=== PATIENT | female | born 1955 | race Hispanic/Latino ===

== ENCOUNTER → 2017-10-26 | Outpatient (CLI) | payer MEDICAID ==
[~2017-10-26] MED LIST: ATOR20TA65 PO; CILO100T PO; CLOP75TA32 PO; DULO20 PO; LEVO300T4 PO; PREG75 PO; TRAM-355 PO; TRAZ-185 PO
== END | disposition home or self-care (01) ==
LOC: RAH 12:34
PROVIDERS: ATTEND Internal Medicine Cardiovascular Disease
DX: I73.9 Peripheral vascular disease, unspecified (principal)
CPT/HCPCS: 93925

== ENCOUNTER → 2017-12-09 | Outpatient (CLI) | payer MEDICAID ==
[~2017-12-09] VITALS: Ht 154.9 cm; Wt 77.1 kg
[~2017-12-09] MED LIST changes: +REGADENOSON 0.4 MG/5 ML PF SYG IVP SCH
== END | disposition home or self-care (01) ==
LOC: SHCH 08:39
PROVIDERS: ATTEND Internal Medicine Cardiovascular Disease
DX: R07.9 Chest pain, unspecified (principal); R51 Headache
CPT/HCPCS: 78452; 93017; 96374; A9500 ×2; J2785

== ENCOUNTER → 2018-06-07 | Outpatient (CLI) | payer MEDICAID ==
[~2018-06-07] MED LIST changes: -REGADENOSON 0.4 MG/5 ML PF SYG IVP SCH
== END | disposition home or self-care (01) ==
LOC: RAH 15:31
PROVIDERS: ATTEND Internal Medicine
DX: M79.671 Pain in right foot (principal)
CPT/HCPCS: 73630

== ENCOUNTER → 2018-07-13 | Outpatient (CLI) | payer MEDICAID | END | disposition home or self-care (01) | LOC: SHCH 10:10 | PROVIDERS: ATTEND Internal Medicine Cardiovascular Disease | DX: I65.23 Occlusion and stenosis of bilateral carotid arteries (principal) | CPT/HCPCS: 93880 ==

== ENCOUNTER → 2019-08-10 | Outpatient (CLI) | payer MEDICAID ==
[~2019-08-10] VITALS: Ht 154.9 cm; Wt 70.3 kg
[~2019-08-10] MED LIST changes: +REGADENOSON 0.4 MG/5 ML PF SYG IVP SCH
== END | disposition home or self-care (01) ==
LOC: SHCH 08:29
PROVIDERS: ATTEND Internal Medicine Cardiovascular Disease
DX: I25.10 Atherosclerotic heart disease of native coronary artery without angina pectoris (principal)
CPT/HCPCS: 78452; 93017; 96374; A9500 ×2; J2785

== ENCOUNTER → 2021-08-04 | Outpatient (CLI) | payer MEDICAID | END | disposition home or self-care (01) | LOC: SHCH 08:14 | PROVIDERS: ATTEND Internal Medicine Cardiovascular Disease | DX: R07.9 Chest pain, unspecified (principal) | CPT/HCPCS: 78452; 93017; 96374; A9500 ×2; J2785 ==

== ENCOUNTER 2022-11-02 19:25 | Emergency (ER) | payer MEDICAID ==
[~2022-11-02] VITALS: Ht 154.9 cm; Wt 71.7 kg
[~2022-11-02 19:25] MED LIST changes: -CILO100T PO; +CILO100T3 PO; -REGADENOSON 0.4 MG/5 ML PF SYG IVP SCH
[2022-11-02 19:56] LABS: BASOPHILS % (AUTO) 0.5 % (0.0-5.0); EOSINOPHILS % (AUTO) 0.5 % (0.0-8.0); HEMATOCRIT 38.5 % (36-48); LYMPHOCYTES % (AUTO) 51.1 % (21.0-51.0); MEAN CORPUSCULAR HEMOGLOBIN 30.5 pg (27.0-33.0); MEAN CORPUSCULAR HGB CONC 33.2 g/dL (32.0-36.0); MEAN CORPUSCULAR VOLUME 91.7 fL (79-99); MONOCYTES % (AUTO) 8.5 % (3.0-13.0); NEUTROPHILS % (AUTO) 39.1 % (40.0-77.0); PLATELET COUNT (AUTO) 238 K/uL (130-400); RED CELL DISTRIBUTION WIDTH 13.2 % (11.0-15.5); WHITE BLOOD COUNT (AUTO) 6.4 K/uL (4.8-10.8)
[2022-11-02] MEDS ORDERED: LORAZEPAM 2 MG/ML 1 ML VIAL IVP ONE (20:00)
[2022-11-02 20:03] VITALS: BP 156/81
[2022-11-02 20:09] LABS: CREATININE 0.7 mg/dL (0.5-1.5); POTASSIUM 3.7 mmol/L (3.5-5.1)
[2022-11-02 20:14] LABS: ALBUMIN 3.6 g/dL (3.5-5.0); TOTAL PROTEIN, SERUM 6.8 g/dL (6.0-8.3)
[2022-11-02 20:26] LABS: B-TYPE NATRIURETIC PEPTIDE 11 pg/mL (0-100)
[2022-11-02] MEDS ORDERED: SOLU-MEDROL 125MG VIAL IVP ONE (21:00)
[2022-11-02] MEDS ORDERED: METH4TAB3 PO (22:19)
== END 2022-11-02 22:30 | disposition home or self-care (01) ==
LOC: EDH 19:25
DX: S46.912A Strain of unspecified muscle, fascia and tendon at shoulder and upper arm level, left arm, initial encounter (principal); M94.0 Chondrocostal junction syndrome [Tietze]; F41.9 Anxiety disorder, unspecified; E11.9 Type 2 diabetes mellitus without complications; M79.7 Fibromyalgia; J45.909 Unspecified asthma, uncomplicated; Z79.899 Other long term (current) drug therapy; Z88.6 Allergy status to analgesic agent; X58.XXXA Exposure to other specified factors, initial encounter; Y93.89 Activity, other specified; Y92.89 Other specified places as the place of occurrence of the external cause; Y99.8 Other external cause status
CPT/HCPCS: 99285; 96374; 71045; 96375; 84484 ×2; 80053; 83880; 85025; 36415; 93005; J2930; J2060

== ENCOUNTER 2025-01-31 06:36 | Day surgery (SDC) | payer MEDICARE, MEDICAID ==
[2025-01-29 12:28] LABS: IMMATURE GRANULOCYTE ABSOLUTE 0.02 K/uL (0-1); NUCLEATED RED BLOOD CELLS 0.0 % (0.0-0.19); PLATELET COUNT (AUTO) 260 K/uL (130-400); RED BLOOD CELL COUNT(AUTO) 4.66 MIL/uL (4.00-5.50); RED CELL DISTRIBUTION WIDTH 13.2 % (11.0-15.5); WHITE BLOOD COUNT (AUTO) 7.6 K/uL (4.8-10.8)
[2025-01-29 12:29] VITALS: BP 150/61; PULSE 66; RESP 17; TEMP 97.7
[2025-01-29 12:33] LABS: APPEARANCE,URINE CLOUDY (CLEAR); GLUCOSE, URINE (UA) 150 mg/dL (NEGATIVE); LEUKOCYTE ESTERASE ,URINE 75 Leu/uL (NEGATIVE); NITRATE,URINE NEGATIVE (NEGATIVE); OCCULT BLOOD,URINE NEGATIVE (NEGATIVE)
[2025-01-29 12:35] LABS: CREATININE 0.7 mg/dL (0.5-1.0); GLOMERULAR FILTR. RATE CALC 94.0 mL/min (>90); GLUCOSE,RANDOM 172.0 mg/dL (70-105); SODIUM SERUM 138.0 mmol/L (136-145); UREA NITROGEN, BLOOD 19.0 mg/dL (7-18)
[2025-01-29 12:37] LABS: INR 0.97 (0.85-1.15)
[2025-01-29 12:39] LABS: ADD UA MICROSCOPIC YES
[2025-01-29 12:42] LABS: SQUAMOUS EPITHELIAL CELL,UR MOD /HPF (0-2)
--- NOTE | 2025-01-29 13:42 | EKG ---
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
--- NOTE | 2025-01-29 20:01 | HMCIMG ---
EXAM: CR Chest, 1 View. CLINICAL HISTORY: PRE OP COMPARISON: None provided. FINDINGS: LUNGS: There is no mass, infiltrate, or acute pulmonary abnormality. PLEURAL SPACES: No pleural effusion or pneumothorax. MEDIASTINUM: Cardiac size and mediastinal contours within normal limits. BONES: No aggressive appearing osseous lesion seen. IMPRESSION: No acute cardiopulmonary pathology is evident. /Sarah Ann
[2025-01-31] VITALS (14 sets, daily range): BP systolic 125–183; BP diastolic 45–82; PULSE 56–72; RESP 15–21; TEMP 97.4–97.8
[~2025-01-31] VITALS: Ht 154.9 cm; Wt 69.0 kg
[~2025-01-31 06:36] MED LIST changes: +ALBU18HF7 PO; -ATOR20TA65 PO; +CETI10TA57 PO; -CILO100T3 PO; +CYCL5TAB3 PO; +CYMBALTA PO; -DULO20 PO; +EMPA25TA PO; +ERGO500093 PO; +ISOS30TA92 PO; +LEVO175T4 PO; -LEVO300T4 PO; +LOSA25TA41 PO; +METO-408 PO; +MONT-39 PO; -PREG75 PO; +ROSU40TA88 PO; -TRAM-355 PO; -TRAZ-185 PO
[2025-01-31] MEDS: 0.9%NACL 1000ML 1,000 ML IV SCH (07:23)
[2025-01-31] MEDS ORDERED: IOHEXOL 350 MG/ML 100ML INFUS..BTL IV ONE (07:45)
[2025-01-31] MEDS ORDERED: HEParin-NS 1,000 UNIT/500 ML 1,000 ML IV ONE (07:45)
[2025-01-31] MEDS ORDERED: LIDOCAINE HCL 400MG/20ML VIAL ONE (07:45)
[2025-01-31] MEDS ORDERED: MIDAZOLAM HCL 1 MG/ML 2ML VIAL ONE (08:01)
[2025-01-31] MEDS ORDERED: HEParin-NS 1,000 UNIT/500 ML 500 ML IV ONE (08:56)
[2025-01-31] MEDS ORDERED: NITROGLYCERIN 50MG/D5W 250ML 1 BOT IV PRN (09:30)
[2025-01-31] MEDS ORDERED: CILO100T3 PO (09:36)
--- NOTE | 2025-01-31 09:43 | PRN ---
Cath Procedure Report CATH PROCEDURE REPORT CARDIAC CATHETERIZATION REPORT Date of Service: Jan 31, 2025 After informed consent the patient was prepped and draped in the usual fashion. She received 2 mg of Versed in divided doses to achieve adequate level of conscious sedation. She received 16 cc of 2% xylocaine in the right inguinal area. A six [place] sheath was introduced into the right femoral artery using modified Seldinger technique. A Liz four right six [place]ic diagnostic catheter was then advanced over guidewire to the aortic root. Wire was removed and catheter engaged the algaaciq right coronary artery which was visualized in multiple planes. The catheter was removed and a Liz four left six [place]ic diagnostic catheter was then advanced over guidewire to the aortic root. Wire was removed and catheter engaged into the left main coronary artery. The left coronary system was visualized multiple planes and catheter was removed. Findings: The right coronary artery is a right-dominant vessel free of obstruction gives rise to normal PDA and posterolateral branches. The left main coronary artery is free of obstruction the circumflex artery is a nondominant vessel free of obstruction gives rise to normal obtuse marginal branches. The LAD has a mid stent just after the takeoff of the 1st diagonal artery. There was an 80% InStent restenosis. The 1st diagonal artery is a ozapn-ze-yvnircrm vessel with a 70% ostial stenosis. The remainder of the LAD is free of obstruction. After discussion with the patient was recommended to proceed with ballooning of the mid LAD stent and drug coated balloon as well as PTCA of the ostial diagonal artery. The patient received 6000 units of heparin and ACT was monitored and additional doses of heparin administered through the procedure to obtain adequate levels of ACT. A JL 3.5 guiding catheter was advanced over guidewire to the aortic root. Wire was removed and catheter engaged in the left main coronary artery. A choice PT extra-support wire was placed across the area stenosis in the LAD into the distal LAD. Initial attempts at balloon angioplasty with a 3.0 x 8 mm noncompliant balloon were unsuccessful due to watermelon. The balloon was parked in the distal LAD and a 2nd choice PT wire was placed into the diagonal artery. The ostium of the diagonal artery was then PTCA with a 2.0 x 6 mm balloon. The balloon was then pulled back into the LAD and inflated and the noncompliant balloon was again dilated in the stent but again continued to watermelon despite backup from the diagonal balloon. The diagonal balloon was removed and the 3.0 x 8 mm noncompliant balloon was replaced with a 3.0 x 10 mm balloon but again despite slow inflations the balloon continued to watermelon. The balloon was removed and replaced with a 3.0 x 18 mm semi compliant balloon which was then used to successfully dilate the InStent restenosis. This was reduced to approximately 0%. The balloon was removed and a 3.0 by 10 mm noncompliant balloon was then advanced to the area of the stent and dilated to 16 atmospheres. The balloon was removed and Angio on g showed normal KOLTON flow in the LAD with 0% stenosis in the mid LAD stent. There was a 20% residual stenosis in the ostium of the LAD. A 3.5 by 15 mm drug coated balloon was then advanced across the mid LAD stent and inflated to six atmospheres. Balloon was deflated and removed. Final angiogram shows 0% stenosis and normal KOLTON flow in the LAD with no dissection and 20% stenosis in the ostial diagonal artery post balloon angioplasty. Wires and balloons were removed. ACT measured post procedure sheathogram performed. And Perclose device applied. The entire procedure was well tolerated. The patient does take clopidogrel at home and took her dose this morning. Of 75 mg daily. She has an aspirin allergy and will receive 100 mg of cilostazol b.i.d. 1st dose this morning. Summary: Successful balloon angioplasty noncompliant balloon and drug coated balloon to the mid LAD InStent restenosis and successful balloon angioplasty of the ostial diagonal artery. Report dictated by PALMA Sanchez MD, MD Jan 31, 2025 09:43
--- NOTE | 2025-01-31 10:15 | NUR ---
PER DR. MICHAELS NO PLAVIX TO BE GIVEN PT DID TAKE HER DOSE THIS MORNING. PRIMARY RN MADE AWARE.
--- NOTE | 2025-01-31 12:15 | NUR ---
DRESSING: GAUZE TO RT FEMORAL SITE BLOODY DRAINAGE, REMOVED AND APPLIED D-STAT TO SITE. HELD PRESSURE FOR 20 MINUTES. NO DRAINAGE NOTED AFTER GAUZE CHANGED. RT GROIN SOFT TO TOUCH. NO REDNESS OR SWELLING NOTED TO SURROUNDING AREA.
--- NOTE | 2025-01-31 14:36 | NUR ---
REPORT: HAND OFF COMMUNICATION GIVEN TO ZULEMA QUARLES RN.
--- NOTE | 2025-01-31 16:00 | NUR ---
RIGHT FEMORAL SITE ASSESSED. D-STAT DRESSING REMAINS IN PLACE (CLOSED, DRY AND INTACT). NO BLEEDING/OOZING/HEMATOMA NOTED, SURROUNDING AREA SOFT, NON-TENDER. ASSISTED PATIENT TO SIT ON EDGE OF BED. DISCHARGE INSTRUCTIONS PROVIDED TO PATIENT AND DAUGHTER AT BEDSIDE. BOTH VERBALIZED UNDERSTANDING. NO QUESTIONS/CONCERNS VERBALIZED AT THIS TIME
== END 2025-01-31 16:15 | disposition home or self-care (01) ==
LOC: DAH 06:36
PROVIDERS: ATTEND Internal Medicine Cardiovascular Disease
DX: R94.39 Abnormal result of other cardiovascular function study (principal); I25.118 Atherosclerotic heart disease of native coronary artery with other forms of angina pectoris; T82.855A Stenosis of coronary artery stent, initial encounter; I47.19 Other supraventricular tachycardia; I10 Essential (primary) hypertension; J45.909 Unspecified asthma, uncomplicated; M79.7 Fibromyalgia; E78.5 Hyperlipidemia, unspecified; E03.9 Hypothyroidism, unspecified; E11.9 Type 2 diabetes mellitus without complications; F41.9 Anxiety disorder, unspecified; Y71.2 Prosthetic and other implants, materials and accessory cardiovascular devices associated with adverse incidents; Z79.01 Long term (current) use of anticoagulants; Z88.6 Allergy status to analgesic agent; Z88.8 Allergy status to other drugs, medicaments and biological substances; Z85.850 Personal history of malignant neoplasm of thyroid; Z90.49 Acquired absence of other specified parts of digestive tract; Z98.890 Other specified postprocedural states; Z79.899 Other long term (current) drug therapy
CPT/HCPCS: 80048; 83880; 85025; 85610; 85730; 87086; 81001; 36415; 71045; 93005; 92920; 92921; 85347 ×3; 82948 ×2; 99156; 99157 ×4; 93454; J1815; C1769 ×2; C1887; C1894; C1725 ×4; C1760; J3490; J7030; J1644 ×3; J2250; Q9967; A4215; A4222; A4221; A4663; A4216; A4606; Q9965 ×2; A4223 ×3

== ENCOUNTER → 2025-02-07 | Outpatient (CLI) | payer MEDICARE, MEDICAID ==
[~2025-02-07] MED LIST changes: +CILO100T3 PO; -ISOS30TA92 PO
--- NOTE | 2025-02-08 07:42 | HMCIMG ---
EXAMINATION: SOFT TISSUE ULTRASOUND OF THE RIGHT GROIN. CLINICAL HISTORY: Non traumatic hematoma of soft tissue. S/P right groin catheterization 01/31/2025. COMPARISON: None. TECHNIQUE: Transverse and longitudinal images were obtained FINDINGS: There are enlarged lymph nodes that measure 1.1 x 0.7 cm 1.2 x 0.6 cm, and 2.7 x 0.6 cm in the right groin. Hilar echoes are maintained. No increased vascularity. The femoral vessels appear normal. There is no hematoma. IMPRESSION: Right inguinal lymphadenopathy. Recommend CT with contrast. /[place]
== END | disposition home or self-care (01) ==
LOC: RAH 15:54
PROVIDERS: ATTEND Internal Medicine Cardiovascular Disease
DX: M79.81 Nontraumatic hematoma of soft tissue (principal); R59.0 Localized enlarged lymph nodes
CPT/HCPCS: 76882